=== PATIENT | male | born 1975 | race Caucasian/White ===

== ENCOUNTER 2022-01-05 02:30 | Emergency (ER) | payer SELFPAY ==
[2022-01-05] MEDS ORDERED: Ketorolac 30 MG/ML SDV ONE (02:45)
[2022-01-05] MEDS ORDERED: Ketorolac 30 MG/ML SDV IVPUSH ONE (02:46)
[2022-01-05] MEDS ORDERED: Tamsulosin 0.4 MG Cap.ER PO ONE (03:17)
[2022-01-05] MEDS ORDERED: HYDROmorphone 0.5 MG/0.5 ML Syringe IVPUSH ONE (04:21)
== END 2022-01-05 04:51 | disposition home or self-care (01) ==
LOC: JP.ED 02:30
DX: N13.2 Hydronephrosis with renal and ureteral calculous obstruction (principal); Z88.5 Allergy status to narcotic agent
CPT/HCPCS: 74176; 96374; 96375; 99283; 99284; A9270; J1170; J1885

== ENCOUNTER 2023-03-06 08:12 | Emergency (ER) | payer SELFPAY ==
[2023-03-06] MEDS ORDERED: Ketorolac 30 MG/ML SDV IM ONE (09:04)
[2023-03-06] MEDS ORDERED: Sodium Chloride 0.9% 10 ML Syringe FLUSH PRN ×2 (10:15→10:22)
[2023-03-06] MEDS ORDERED: Sodium Chloride 0.9% 1,000 ML IV STA (10:15)
[2023-03-06] MEDS ORDERED: Iopamidol 612 MG/ML 100 ML Bottle IV PRN (10:22)
[2023-03-06] MEDS ORDERED: Sodium Chloride 0.9% 50 ML IV ONE (10:22)
[2023-03-06 10:27] LABS: BASOPHILS PERCENT AUTO 0.2 % (0.1-1.3); EOSINOPHILS ABSOLUTE AUTO 0.05 K/uL (0.00-0.40); EOSINOPHILS PERCENT AUTO 0.5 % (0.0-5.4); HEMATOCRIT 43.9 % (38.4-49.7); HEMOGLOBIN 15.3 g/dL (12.9-16.9); IMMATURE GRAN ABSOLUTE AUTO 0.04 K/uL (0.00-0.23); IMMATURE GRAN PERCENT AUTO 0.4 % (0.0-0.7); LYMPHOCYTES ABSOLUTE AUTO 0.92 K/uL (0.8-3.3); LYMPHOCYTES PERCENT AUTO 8.4 % (11.4-47.7); MEAN CORPUSCULAR HEMOGLOBIN 30.9 pg (31.6-35.5); MEAN CORPUSCULAR HGB CONC 34.9 g/dL (31.6-35.5); MEAN CORPUSCULAR VOLUME 88.7 fL (81.4-99.0); MONOCYTES ABSOLUTE AUTO 0.42 K/uL (0.20-0.90); MONOCYTES PERCENT AUTO 3.8 % (3.3-12.6); NEUTROPHILS ABSOLUTE AUTO 9.56 K/uL (1.0-7.6); NEUTROPHILS PERCENT AUTO 86.7 % (40.0-78.1); PLATELET COUNT,PLT 212 K/uL (130-375); RED BLOOD CELL COUNT 4.95 M/uL (4.14-5.76)
[2023-03-06 10:33] LABS: BASOPHILS ABSOLUTE AUTO 0.02 K/uL (0.00-0.10)
[2023-03-06 10:47] LABS: A/G RATIO 1.2 (1.2-2.2); ALANINE AMINOTRANSFERASE,ALT 42 U/L (12-78); ALBUMIN 4.1 g/dL (3.4-5.0); ALKALINE PHOSPHATASE 95 U/L (46-116); ANION GAP 13.2 mmol/L (5.0-14.0); ASPARTATE AMNIOTRANSFERASE,AST 21 U/L (15-37); BILIRUBIN TOTAL 0.9 mg/dL (0.2-1.0); BLOOD UREA NITROGEN,BUN 14 mg/dL (7-18); CALCIUM 9.6 mg/dL (8.5-10.1); CARBON DIOXIDE,CO2 26 mmol/L (21-32); CHLORIDE,CL 102 mmol/L (100-108); CREATININE 1.2 mg/dL (0.8-1.3); EST CRCL DRUG DOSING (CG) 89.43 mL/min; ESTIMATED GFR 76 mL/min (>60); GLUCOSE RANDOM 114 mg/dL (74-106); POTASSIUM,K 4.2 mmol/L (3.6-5.2); PROTEIN TOTAL,TP 7.6 g/dL (6.4-8.2); SODIUM,NA 141 mmol/L (140-148)
== END 2023-03-06 13:32 | disposition home or self-care (01) ==
LOC: JP.ED 08:12
DX: K59.00 Constipation, unspecified (principal); F17.210 Nicotine dependence, cigarettes, uncomplicated; Z88.5 Allergy status to narcotic agent; Z88.0 Allergy status to penicillin; Z88.8 Allergy status to other drugs, medicaments and biological substances
CPT/HCPCS: 36415; 74018; 74177; 80053; 83690; 85025; 96360; 96361; 96372; 99284; J1885; J3490; J7030; Q9967

== ENCOUNTER 2023-09-08 15:25 | Emergency (ER) | payer OTHER | END 2023-09-08 16:45 | disposition home or self-care (01) | LOC: JP.ED 15:25 | DX: I82.402 Acute embolism and thrombosis of unspecified deep veins of left lower extremity (principal); I26.99 Other pulmonary embolism without acute cor pulmonale; F17.210 Nicotine dependence, cigarettes, uncomplicated; Z79.01 Long term (current) use of anticoagulants; Z96.652 Presence of left artificial knee joint; Z88.5 Allergy status to narcotic agent; Z88.0 Allergy status to penicillin; Z88.8 Allergy status to other drugs, medicaments and biological substances | CPT/HCPCS: 99283 ==